=== PATIENT | female | born 1945 | race Caucasian/White ===

== ENCOUNTER 2023-11-01 07:52 | Emergency (ER) | payer OTHER ==
[~2023-11-01] VITALS: Ht 170.2 cm; Wt 51.3 kg
[2023-11-01 08:07] VITALS: BP 151/100
[2023-11-01] MEDS ORDERED: LISI5 PO (08:36)
[2023-11-01] MEDS ORDERED: LISI20 PO (08:37)
[2023-11-01] MEDS ORDERED: HYDR1TAB94 PO (10:39)
== END 2023-11-01 10:58 | disposition home or self-care (01) ==
LOC: ER 07:52
DX: S52.501A Unspecified fracture of the lower end of right radius, initial encounter for closed fracture (principal); S52.601A Unspecified fracture of lower end of right ulna, initial encounter for closed fracture; I10 Essential (primary) hypertension; Z79.899 Other long term (current) drug therapy; W01.0XXA Fall on same level from slipping, tripping and stumbling without subsequent striking against object, initial encounter; Y92.828 Other wilderness area as the place of occurrence of the external cause; Y93.01 Activity, walking, marching and hiking
CPT/HCPCS: 25605; 73110; 99283-25; A9270

== ENCOUNTER 2023-11-18 06:36 | Day surgery (SDC) | payer OTHER ==
[~2023-11-18] VITALS: Ht 170.2 cm; Wt 54.8 kg
[~2023-11-18 06:36] MED LIST: HYDR1TAB94 PO; LISI20 PO; LISI5 PO
[2023-11-18 09:08] VITALS: BP 157/87
--- NOTE | 2023-11-18 10:39 | NUR ---
11/18/23 1039 Reji Euceda IV REMOVED INTACT. SITE WNL. PT WOULD NOT VERBALIZE PAIN LEVEL UPON D/C BUT DESCRIBED PAIN TOLERABLE. PT REFUSED DRINKS, TOLD TO START WITH CLEAR LIQUID AT HOME.
== END 2023-11-18 10:20 | disposition home or self-care (01) ==
LOC: ORSCSDS 06:36
PROVIDERS: Orthopaedic Surgery Sports Medicine
PROC: 0PSH34Z Reposition Right Radius with Internal Fixation Device, Percutaneous Approach (ICD-10-PCS; principal; 2023-11-18 08:00)
DX: S52.551A Other extraarticular fracture of lower end of right radius, initial encounter for closed fracture (principal); I10 Essential (primary) hypertension; Z79.899 Other long term (current) drug therapy
CPT/HCPCS: J0171; J0690; J1100; J2405; J2704; J2795; J3010